=== PATIENT | female | born 1965 | race Caucasian/White ===

== ENCOUNTER → 2018-01-01 17:02 | Outpatient (CLI) | payer OTHER, SELFPAY ==
[2018-01-06 07:55] LABS: HPV APTIMA, High Risk Negative (Negative)
== END ==
PROVIDERS: Family Provider Internal Medicine; PCP Internal Medicine; Visit Provider Obstetrics & Gynecology
DX: Z12.4 Encounter for screening for malignant neoplasm of cervix (principal)
CPT/HCPCS: 88175; G0145

== ENCOUNTER → 2018-02-12 09:58 | Outpatient (CLI) | payer OTHER, SELFPAY ==
--- NOTE | 2018-02-12 10:01 | BI_ITS ---
MAMMOGRAPHY - BILATERAL SCREENING 3-D FATOUMATA SYNTHESIS REASON FOR EXAM: Female, 52 years old. Bilateral Screening 3-D tomosynthesis PERTINENT HISTORY: Left breast excisional biopsy around age 22. Family breast carcinoma maternal great aunt. TECHNIQUE: 2-D mammograms and 3-D Fatoumata synthesis of the breast (s) were performed. CAD was performed. COMPARISON: 05/23/2016 FINDINGS: The breast composition is composed of scattered fibroglandular density. No new asymmetric density, dominant mass, dense spiculated masses, abnormal clustered microcalcifications, architectural distortion, skin thickening or nipple retraction identified. Coarse benign-appearing calcifications. There has been no significant change since the prior study. BI/SCREENING MAMM (CAD), BILAT IMPRESSION: No mammographic signs of malignancy. Routine yearly mammograms recommended. ASSESSMENT CATEGORY: BIRADS Category 2: Benign. A letter regarding these results will be sent to the patient by the facility within 30 days. FOLLOW UP RECOMMENDATION: Yearly follow up mammogram recommended. (A) Negative results should not deter biopsy as a palpable lesion should be followed on clinical grounds and biopsy performed if clinically persistent for 3 months or increasing size. Approximately 10% of breast cancers are not detected by mammography. A normal mammogram should not delay biopsy of a clinically suspicious abnormality. Electronically Signed: Van Ruiz, at 20:29 EDT Tel , Service support ,
== END ==
PROVIDERS: Family Provider Internal Medicine; PCP Internal Medicine; Visit Provider Obstetrics & Gynecology
DX: Z12.31 Encounter for screening mammogram for malignant neoplasm of breast (principal)
CPT/HCPCS: 77063; 77067

== ENCOUNTER → 2019-01-07 11:56 | Outpatient (CLI) | payer OTHER, SELFPAY ==
[2019-01-07 11:35] VITALS: BMI 25.9
[2019-01-07 12:52] LABS: Follicle Stimulating Hormone 100.7 mIU/mL
== END ==
PROVIDERS: Family Provider Internal Medicine; PCP Internal Medicine; Referring Provider Nurse Practitioner Women's Health; Visit Provider Nurse Practitioner Women's Health
DX: R10.2 Pelvic and perineal pain (principal)
CPT/HCPCS: 36415; 83001

== ENCOUNTER → 2019-01-14 13:45 | Outpatient (CLI) | payer OTHER, SELFPAY ==
[2019-01-07 11:35] VITALS: BMI 25.9
--- NOTE | 2019-01-14 13:50 | US_ITS ---
STUDY: ULTRASOUND OF THE FEMALE PELVIS - COMPLETE REASON FOR EXAM: Female, 53 years old. Pelvic pain TECHNIQUE: Transabdominal and Transvaginal TECHNICAL QUALITY: Adequate. COMPARISON: None. FINDINGS: The uterus is anteverted and is in a midline position. The uterus measures 8.3 x 3.6 x 2.6 cm. Normal uterine cervix. The endometrium measures 3 mm in thickness, and is hyperechoic. There is no demonstrated endometrial mass. There is no demonstrated myometrial mass. The right ovary is visualized. The right ovary measures 1.7 x 1.5 x 1.1 cm. There is no right ovarian cyst or ovarian mass. There is no visualized right adnexal mass or complex lesion. There is normal arterial and normal venous vascularity. The left ovary is visualized. The left ovary measures 1.6 x 1.4 x 1.4 cm. There is no left ovarian cyst or ovarian mass. There is no visualized left adnexal mass or complex lesion. There is normal arterial and normal venous vascularity. There is no fluid in the cul-de-sac. US/Pelvic (Non ) IMPRESSION: Normal female pelvis. Electronically Signed: Carlos Carrillo, at 14:57 EDT Tel , Service support ,
--- NOTE | 2019-01-14 13:50 | US_ITS ---
STUDY: ULTRASOUND OF THE FEMALE PELVIS - COMPLETE REASON FOR EXAM: Female, 53 years old. Pelvic pain TECHNIQUE: Transabdominal and Transvaginal TECHNICAL QUALITY: Adequate. COMPARISON: None. FINDINGS: The uterus is anteverted and is in a midline position. The uterus measures 8.3 x 3.6 x 2.6 cm. Normal uterine cervix. The endometrium measures 3 mm in thickness, and is hyperechoic. There is no demonstrated endometrial mass. There is no demonstrated myometrial mass. The right ovary is visualized. The right ovary measures 1.7 x 1.5 x 1.1 cm. There is no right ovarian cyst or ovarian mass. There is no visualized right adnexal mass or complex lesion. There is normal arterial and normal venous vascularity. The left ovary is visualized. The left ovary measures 1.6 x 1.4 x 1.4 cm. There is no left ovarian cyst or ovarian mass. There is no visualized left adnexal mass or complex lesion. There is normal arterial and normal venous vascularity. There is no fluid in the cul-de-sac. US/Transvaginal Non- IMPRESSION: Normal female pelvis. Electronically Signed: Carlos Carrillo, at 14:57 EDT Tel , Service support ,
== END ==
PROVIDERS: Family Provider Internal Medicine; PCP Internal Medicine; Referring Provider Nurse Practitioner Women's Health; Visit Provider Nurse Practitioner Women's Health
DX: R10.2 Pelvic and perineal pain (principal)
CPT/HCPCS: 76830; 76856; 93976

== ENCOUNTER → 2019-03-04 10:51 | Outpatient (CLI) | payer OTHER, SELFPAY ==
[2019-01-07 11:35] VITALS: BMI 25.9
--- NOTE | 2019-03-04 11:10 | EKG12_ITS ---
Test Reason : PRE-OP Blood Pressure : / mmHG Vent. Rate : 084 BPM Atrial Rate : 084 BPM P-R Int : 120 ms QRS Dur : 072 ms QT Int : 372 ms P-R-T Axes : 054 079 048 degrees QTc Int : 439 ms Normal sinus rhythm Normal ECG Confirmed by ARLEY HURLEY, SWATHI ([id number]), editor managing director EVI MCCLAIN ([id number]) on 03/05/2019 1:31:52 PM Referred By: Alcon Cat Confirmed By:SWATHI TUBBS MD
[2019-03-04 11:42] LABS: Hematocrit 43.4 % (37-47); Hemoglobin 14.4 g/dL (12.0-15.0); Mean Corp Hgb Conc 33.2 g/dL (32-36); Mean Corpuscular Hgb 31.7 pg (27.0-32.0); Mean Corpuscular Volume 95.6 fL (81-99); Mean Platelet Vol. 9.4 fl (6.2-12.0); Platelet Count 208 K/mm3 (150-450); RBC Distribution Width CV 11.9 % (11.6-14.6); RBC Distribution Width SD 41.8 fl (35.1-43.9); Red Blood Count 4.54 M/mm3 (4.2-5.4); White Blood Count 5.8 K/mm3 (4.4-11.0)
[2019-03-04 12:04] LABS: Anion Gap 6 (5-15); BUN 17 mg/dL (7-18); BUN/Creat Ratio 24.5 RATIO (10-20); Calcium,Total 8.4 mg/dL (8.5-10.1); Chloride 108 mmol/L (98-107); EST Glomerular Filtration Rate 95 mL/min (>60); Est Glom Filt Rate - Afr Amer 114 mL/min (>60); Glucose 98 mg/dL (74-106); Potassium 3.7 mmol/L (3.5-5.1); Sodium Level 142 mmol/L (136-145)
== END ==
PROVIDERS: Family Provider Internal Medicine; PCP Internal Medicine; Referring Provider Orthopaedic Surgery; Visit Provider Orthopaedic Surgery
DX: Z01.818 Encounter for other preprocedural examination (principal); Z01.810 Encounter for preprocedural cardiovascular examination
CPT/HCPCS: 36415; 80048; 85027; 93005

== ENCOUNTER 2020-01-15 06:51 | Day surgery (SDC) | payer OTHER, SELFPAY ==
[2019-12-27 13:59] VITALS: BMI 25.9
--- NOTE | 2019-12-30 01:38 | HP_ITS ---
Intake Vital Signs 12/27/19 Height 5 ft 2 in 12/27/19 Weight: 135 lb 12/27/19 BMI 24.7 12/27/19 BP 134/86 H 12/27/19 Blood Pressure Location Rt brachial 12/27/19 Position Sitting 12/27/19 Respiration 18 12/27/19 Pulse 90 12/27/19 Pulse Source Monitor 12/27/19 Temp 98.2 F 12/27/19 Temp Source Temporal 12/27/19 Pulse Oximetry (%) 100 12/27/19 Oxygen Delivery Method room air Intake Visit Reasons: Cscope Consult Chief Complaint: est annual Optical Effects Layout Person Required: No Is patient in pain?: No (Lower abdominal pain) Allergies Penicillins Adverse Reaction (Mild, Verified 12/27/19 13:55) Yeast Infection Medications clobetasol 0.05 % topical ointment 1 applic TOPICAL DAILY #45 g 12/17/18 [Rx Confirmed 12/27/19] coenzyme Q10 125 mg capsule 120 mg PO cap 01/07/19 [History Confirmed 12/27/19] ginkgo biloba extract-Panax ginseng root extract 60 mg-100 mg capsule cap PO cap 01/07/19 [History Confirmed 12/27/19] ospemifene 60 mg tablet 60 mg PO DAILY #30 tab 01/07/19 [Rx Confirmed 12/27/19] estradiol 10 mcg vaginal tablet 10 mcg VAGINAL 2XW #8 tab 08/16/19 [Rx Confirmed 12/27/19] conjugated estrogens 0.625 mg/gram vaginal cream 1 applic TOPICAL 2XW g 12/27/19 [History Confirmed 12/27/19] dextroamphetamine-amphetamine 15 mg tablet 15 mg PO BID tab 12/27/19 [History Confirmed 12/27/19] zolpidem 10 mg tablet 10 mg PO QHS PRN tab 12/27/19 [History Confirmed 12/27/19] PFSH Medical History Cervicalgia (Acute) Raynauds phenomenon (Acute) Mittelschmerz (Acute) Lichen sclerosus (Acute) ADHD (Acute) Surgical History History of (Acute) History of prior ablation treatment (Acute) Hx of arthroscopy of shoulder (Acute) Carpal tunnel syndrome (Acute) Family History Aunt Breast cancer Mother Heart disease Thyroid disorder Father Heart disease Other Ovarian cancer Social History adopted: No number of children: 3 current occupational status: retired sexually active: Yes Smoking Status: Never smoker second hand exposure: No alcohol intake: current alcohol intake frequency: a few times a month substance use type: does not use caffeine: Yes what type of physical activity do you participate in: none frequency: does not exercise do you feel safe at home: Yes HPI HPI HPI: ELAINA LARA, is a 54 F who presents to the office today for HPI HPI Surgical H&P: Yes HPI: ELAINA LARA, is a 54 F who presents to the office today for ROS General General: No weight change, appetite, fatigue, colon cancer, breast cancer or weakness HEENT HEENT: No difficulty swallowing, eye injury, eye surgery, swollen glands or hoarseness Endo Endocrine: No thyroid disease, diabetes mellitus, thyroid cancer, Hair loss, heat intolerance or cold intolerance Skin Skin: No rash or changing moles Musc Musculoskeletal: Yes back problems and arthritis; no rheumatoid arthritis, gout or joint pain Cardio Cardiovascular: No murmur, pacemaker, heart disease, atrial fibrillation, high blood pressure, heart attack, heart stent, palpitations, shortness of breat with exertion or chest pain Psych Psychiatric: No depression, anxiety or hearing voices Resp Respiratory: No shortness of breath, No sleep apnea, No cough, No COPD, No asthma, No emphysema, No wheezing Gastro Gastrointestinal: No abdominal pain, No nausea or vomiting, No diarrhea, Yes constipation, No blood in stool, No acid reflux, No hemorrhoids, No ulcers, No gallbladder problem, No black,tarry stools Bryant Hematologic: No blood thinners, No blood disorders, No bleeding, No anemia, No blood clots Neuro Neurologic: No weakness Exam Cardio Heart Sounds: no murmurs Assessment & Plan Problems 1. Constipation K59.00 Plan Discussed with patient importance of fiber in her diet recommend 25 g of fiber daily would recommend slowly working up to this. Also tracking her fiber intake. I have discussed the above with the patient. I have offered the patient colonoscopy for evaluation. I have explained the risks/benefits of the procedure and described the procedure. I have discussed the risks with the patient, including but not limited to: infection, bleeding, perforation of the GI tract requiring emergency surgery, inability to complete the procedure, injury to any internal organs, complications of anesthesia, etc. - the patient understands and agrees to proceed. I have answered all the patient's questions to the patient's satisfaction and the patient has no further questions. The patient has been given instructions for the colon cleansing preparation. Discussed with patient that if she is having bowel movements mostly every 3 days recommend a 2-day prep with magnesium citrate followed by MiraLAX/Dulcolax however if she is going mostly every 2 days or less okay to do the 1 day clears with MiraLAX/Dulcolax. Molly Morillo M.D. Pager: [phone] [facility] [address] [place] [address], [address] [place] [id number] Office: [phone] Orders Orders: Colonoscopy 12/27/19 Plan Detail Follow Up We will schedule colonoscopy planning for January 14 Coding Diagnoses Constipation K59.00 Date _ Molly Morillo MD I have examined the patient the following changes are noted: Patient states she has increased her fiber and is is more regular, going daily
--- NOTE | 2020-01-15 | COLBX_PTH ---
PATIENT: ELAINA LARA LOC: EN U#:[id number] AGE/SX: 54/F ROOM: RE01/15/[address]: Dr. Molly Morillo MD : 1965 BED: DIS: 01/15/2020 SPEC #: [id number] RECD: 01/15/20 13:21 STATUS: MIGUEL KADY #: [id number] LEX: 01/15/20 00:[address]: Molly Morillo DEPT: SURGICAL PATHOLOGY RECD BY: Pineda Giraldo ENTERED: 01/15/20 13:21 SP TYPE: COLON BX OTHR DR: Dr. Soniya Raymundo MD Tissues: Ascending colon Procedures: Surgery Specimen Level IV HEADER OPERATION: Colonoscopy (MAC) PRE-OP DIAGNOSIS: Constipation TISSUE SUBMITTED: Ascending colon polyp MICROSCOPIC DIAGNOSIS Ascending colon polyp, biopsy: Tubular adenoma. AM:alexander 01/16/20 MICROSCOPIC DESCRIPTION Slides are reviewed. GROSS DESCRIPTION Received in fixative is one container labeled with the patient's name and designated ascending colon polyp. The specimen consists of one irregular fragment of light stoddard soft tissue that measures 0.4 x 0.2 x 0.1 cm. The specimen is totally submitted in one cassette. / SJ:alexander 01/15/20 TC:5 CPT: 36050
[2020-01-15] MEDS: Lactated Ringers 1,000 ML 100 ML IV (07:26)
[2020-01-15 07:27] VITALS: BP 104/80; PULSE 81; RESP 16; TEMP 36.2; O2SAT 100; BMI 23.5
--- NOTE | 2020-01-15 07:42 | HP.PCM_ITS ---
History and Physical Date of Admission: 01/15/20 Date of Service: 12/27/19 MR#: [id number] Acct: [id number] Name: ELAINA LARA Rep #: [id number] : 1965 Provider: Dr. Sariah Morillo MD Age/Sex: 54/F Location: [facility] Status: Signed Intake Vital Signs 12/27/19 Height 5 ft 2 in 12/27/19 Weight: 135 lb 12/27/19 BMI 24.7 12/27/19 BP 134/86 H 12/27/19 Blood Pressure Location Rt brachial 12/27/19 Position Sitting 12/27/19 Respiration 18 12/27/19 Pulse 90 12/27/19 Pulse Source Monitor 12/27/19 Temp 98.2 F 12/27/19 Temp Source Temporal 12/27/19 Pulse Oximetry (%) 100 12/27/19 Oxygen Delivery Method room air Intake Visit Reasons: Cscope Consult Chief Complaint: est annual Spiral Machine Operator Required: No Is patient in pain?: No (Lower abdominal pain) Allergies Penicillins Adverse Reaction (Mild, Verified 01/07/20 10:44) Yeast Infection Medications ginkgo biloba extract-Panax ginseng root extract 60 mg-100 mg capsule 1 cap PO DAILY cap 01/07/19 [History Confirmed 01/07/20] estradiol 10 mcg vaginal tablet 10 mcg VAGINAL 2XW #8 tab 08/16/19 [Rx Confirmed 01/07/20] conjugated estrogens 0.625 mg/gram vaginal cream 1 applic TOPICAL 2XW g 12/27/19 [History Confirmed 01/07/20] dextroamphetamine-amphetamine 15 mg tablet 15 mg PO BID tab 12/27/19 [History Confirmed 01/07/20] zolpidem 10 mg tablet 10 mg PO QHS PRN tab 12/27/19 [History Confirmed 01/07/20] Clobetasol Propionate 1 applic TOPICAL QWEEK 01/07/20 [History Confirmed 01/07/20] PFSH Medical History Cervicalgia (Acute) Raynauds phenomenon (Acute) Mittelschmerz (Acute) Lichen sclerosus (Acute) ADHD (Acute) Surgical History History of (Acute) History of prior ablation treatment (Acute) Hx of arthroscopy of shoulder (Acute) Carpal tunnel syndrome (Acute) Family History Aunt Breast cancer Mother Heart disease Thyroid disorder Father Heart disease Other Ovarian cancer Social History (Updated 01/14/20 @ 08:[address] Molly Morillo MD) adopted: No number of children: 3 current occupational status: retired sexually active: Yes Smoking Status: Never smoker second hand exposure: No alcohol intake: current alcohol intake frequency: a few times a month substance use type: does not use caffeine: Yes what type of physical activity do you participate in: none frequency: does not exercise do you feel safe at home: Yes HPI HPI HPI: ELAINA LARA, is a 54 F who presents to the office today for HPI HPI Surgical H&P: Yes HPI: ELAINA LARA, is a 54 F who presents to the office today for colonoscopy due to change of bowel habits patient states she has had constipation over the last 6 months she only goes about every 3 days denies any blood. Patient is unsure how much fiber she gets daily does state that she gets enough water. Patient is never had a previous colonoscopy. Patient denies any family history of colon cancer. Patient also states that she has left lower quadrant pain occasionally unsure what makes it better or worse describes it as crampy. ROS General General: No weight change, fatigue, colon cancer, breast cancer or weakness HEENT HEENT: No difficulty swallowing, eye injury, eye surgery, swollen glands or hoarseness Endo Endocrine: No thyroid disease, diabetes mellitus, thyroid cancer, Hair loss, hea t intolerance or cold intolerance Skin Skin: No rash or changing moles Musc Musculoskeletal: Yes back problems and arthritis; no rheumatoid arthritis, gout or joint pain Cardio Cardiovascular: No murmur, pacemaker, heart disease, atrial fibrillation, high blood pressure, heart attack, heart stent, palpitations, shortness of breat with exertion or chest pain Psych Psychiatric: No depression, anxiety or hearing voices Resp Respiratory: No shortness of breath, No sleep apnea, No cough, No COPD, No asthma, No emphysema, No wheezing Gastro Gastrointestinal: No abdominal pain, No nausea or vomiting, No diarrhea, Yes constipation, No blood in stool, No acid reflux, No hemorrhoids, No ulcers, No gallbladder problem, No black,tarry stools Bryant Hematologic: No blood thinners, No blood disorders, No bleeding, No anemia, No b lood clots Neuro Neurologic: No weakness Exam Const General: cooperative, comfortable, no acute distress Cardio Heart Sounds: no murmurs GI Inspection: distended Palpation: soft, tender (Minimal left lower quadrant no peritoneal signs) Extrem General: no clubbing, cyanosis or edema Psych Affect: normal affect Assessment & Plan Problems 1. Constipation K59.00 Plan Discussed with patient importance of fiber in her diet recommend 25 g of fiber daily would recommend slowly working up to this. Also tracking her fiber intake. I have discussed the above with the patient. I have offered the patient colonoscopy for evaluation. I have explained the risks/benefits of the procedure and described the procedure. I have discussed the risks with the patient, including but not limited to: infection, bleeding, perforation of the GI tract requiring emergency surgery, inability to complete the procedure, injury to any internal organs, complications of anesthesia, etc. - the patient understands and agrees to proceed. I have answered all the patient's questions to the patient's satisfaction and the patient has no further questions. The patient has been given instructions for the colon cleansing preparation. Discussed with patient that if she is having bowel movements mostly every 3 days recommend a 2-day prep with magnesium citrate followed by MiraLAX/Dulcolax bee danna if she is going mostly every 2 days or less okay to do the 1 day clears with MiraLAX/Dulcolax. Molly Morillo M.D. Pager: [phone] [facility] [address] [place] [address], [address] [place] [address] Office: [phone] Orders Orders: Colonoscopy 12/27/19 Plan Detail Follow Up We will schedule colonoscopy planning for January 14 Coding Level of Care Code Off vis,new,level 3 Diagnoses Constipation K59.00 01/14/20 0843 <Electronically signed by Molly Bonilla am, MD> Date _ Molly Morillo MD I have examined the patient the following changes are noted: Patient states she has increased her fiber in diet, going daily. We discussed the current risks associated with COVID-19. While it is understood that there is a community spread of COVID-19, the risk of emanuel COVID-19 while at [facility] ([facility]) is very low; however, the risk cannot be completely mitigated because of the community spread of the disease. We discussed in detail the risk of exposure to and/or potential harm posed by the COVID-19 virus with having a surgery/procedure at this time versus the risk of delaying the surgery/procedure. It is not possible to know either the risk of delaying the surgery or procedure or chance of getting an infection with perfect accuracy, but a joint decision was made to proceed at this time with the scheduled surgery/procedure as indicated on the consent form. Patient was notified that we will need to comply with any screening or testing [facility] wishes to perform or that surgery may be delayed for any positive results.
[2020-01-15 08:32] VITALS: BP 104/80; BP 91/57; PULSE 67; RESP 18; TEMP 36.6; O2SAT 100
[2020-01-15 08:37] VITALS: BP 104/80; BP 94/58; PULSE 63; RESP 17; O2SAT 100
--- NOTE | 2020-01-15 08:41 | OP.COLON_ITS ---
Patient Name: Breanna Ward Procedure Date: 01/15/2020 7:52 AM Date of : 1965 Age: 54 Procedure: Colonoscopy Indications: Constipation Providers: Molly Morillo MD Referring MD: Soniya Raymundo Medicines: Monitored Anesthesia Care Patient Profile: This is a 54 year old female. Last Colonoscopy: none. The patient's first colonoscopy is today. Complications: No immediate complications. Procedure: Pre-Anesthesia Assessment: - Prior to the procedure, a History and Physical was performed, and patient medications and allergies were reviewed. The patient's tolerance of previous anesthesia was also reviewed. The risks and benefits of the procedure and the sedation options and risks were discussed with the patient. All questions were answered, and informed consent was obtained. Prior Anticoagulants: The patient has taken no previous anticoagulant or antiplatelet agents. ASA Grade Assessment: Per anesthesia. After reviewing the risks and benefits, the patient was deemed in satisfactory condition to undergo the procedure. After I obtained informed consent, the scope was passed under direct vision. Throughout the procedure, the patient's blood pressure, pulse, and oxygen saturations were monitored continuously. The pediatric colonoscope was introduced through the anus and advanced to the cecum, identified by the appendiceal orifice, ileocecal valve and palpation. The colonoscopy was performed without difficulty. The patient tolerated the procedure well. The quality of the bowel preparation was good. Scope In: 8:10:11 AM Scope Withdrawal Time 0 hours 10 minutes 14 seconds Scope Out: 8:26:58 AM Total Procedure Duration Time 0 hours 16 minutes 47 seconds Findings: The perianal and digital rectal examinations were normal. A less than 5 mm polyp was found in the ascending colon. The polyp was semi-pedunculated. The polyp was removed with a hot snare. Resection and retrieval were complete. The exam was otherwise without abnormality on direct and retroflexion views. Impression: - One less than 5 mm polyp in the ascending colon, removed with a hot snare. Resected and retrieved. - The examination was otherwise normal on direct and retroflexion views. Recommendation: - Discharge patient to home. - Resume previous diet. - Continue present medications. - Await pathology results. - Repeat colonoscopy in 3 - 5 years for surveillance based on pathology results. Procedure Code(s): --- Professional --- 66787, Colonoscopy, flexible; with removal of tumor(s), polyp(s), or other lesion(s) by snare technique Diagnosis Code(s): --- Professional --- D12.2, Benign neoplasm of ascending colon K59.00, Constipation, unspecified CPT copyright 2017 [employer]. All rights reserved. The codes documented in this report are preliminary and upon cpr ambulance driver review may be revised to meet current compliance requirements. MD Molly Wharton MD 01/15/2020 8:41:10 AM This report has been signed electronically. Number of Addenda: 0 Note Initiated On: 01/15/2020 7:52 AM
--- NOTE | 2020-01-15 08:41 | OP.CCLET_ITS ---
01/15/2020 Soniya Raymundo [address] [place] [address] Re : Colonoscopy procedure for Breanna Sylvia Dear Dr. Raymundo This procedure was performed on Wednesday, January 15, 2020. My impressions and recommendations are as follows: Impressions : - One less than 5 mm polyp in the ascending colon, removed with a hot snare. Resected and retrieved. - The examination was otherwise normal on direct and retroflexion views. Recommendations : - Discharge patient to home. - Resume previous diet. - Continue present medications. - Await pathology results. - Repeat colonoscopy in 3 - 5 years for surveillance based on pathology results. My findings are described in the full procedure note, which is enclosed. If I can be of further assistance, please feel free to contact me at Doctor phone number(s): , Work: . Sincerely, MD Molly Wharton MD 01/15/2020 8:41:10 AM This report has been signed electronically.
[2020-01-15 08:42] VITALS: BP 104/80; BP 99/65; PULSE 60; RESP 16; O2SAT 100
[2020-01-15 08:47] VITALS: BP 104/80; BP 94/58; PULSE 57; RESP 16; TEMP 36.6; O2SAT 100
[2020-01-15 09:12] VITALS: BP 104/80; BP 107/76; PULSE 88; RESP 16; TEMP 36.2; O2SAT 100
== END 2020-01-15 09:17 | disposition home or self-care (01) ==
LOC: EN 06:52 → AC 06:52
PROVIDERS: Anesthesiology; PCP Internal Medicine; Referring Provider Internal Medicine; Visit Provider Surgery
PROC: 0DJD8ZZ Inspection of Lower Intestinal Tract, Via Natural or Artificial Opening Endoscopic (ICD-10-PCS; CPT 45378; principal; 2020-01-15 07:55)
DX: D12.2 Benign neoplasm of ascending colon (principal); K59.00 Constipation, unspecified; Z88.0 Allergy status to penicillin
CPT/HCPCS: 45385; 87635; 88305; G2023; J7120; J2405; U0003

== ENCOUNTER 2021-06-14 09:30 | Emergency (ER) | payer OTHER, SELFPAY ==
[2021-06-14 09:32] VITALS: BP 108/87; PULSE 86; RESP 16; TEMP 36.9; O2SAT 100; BMI 24.8
--- NOTE | 2021-06-14 10:17 | RAD_ITS ---
STUDY: X-RAY - UNILATERAL RIBS ( RIGHT ) WITH CHEST REASON FOR EXAM: Female, 55 years old. trauma TECHNIQUE - RIBS: 2 view(s) of the ribs. TECHNIQUE - CHEST: Single PA view of the chest. COMPARISON: None. FINDINGS - RIBS: Normal visualized ribs without a demonstrated fracture. FINDINGS - CHEST: The lungs are clear and expanded. There is no demonstrated pleural abnormality. Normal size heart. Normal mediastinum and gentry. Normal visualized pulmonary arteries. Normal visualized aortic arch and descending thoracic aorta. Normal visualized thoracic spine. Normal visualized ribs, clavicles, and shoulders. There is no demonstrated abnormality of the visualized soft tissue structures of the upper abdomen. RAD/Ribs Uni Min 3V w/PA Chest IMPRESSION: RIBS: Normal x-ray examination of the ribs. CHEST: Normal x-ray examination of the chest. Electronically Signed: Naun Mejia MD at 10:53 EST Tel , Service support ,
--- NOTE | 2021-06-14 10:17 | RAD_ITS ---
STUDY: X-RAY - RIGHT HAND REASON FOR EXAM: Female, 55 years old. injury TECHNIQUE: 3 view(s) of the hand. COMPARISON: None. FINDINGS: Normal radiocarpal articulation. Normal distal radioulnar joint. Normal visualized carpal bones. Normal carpal articulations Normal carpometacarpal articulation of the thumb. Normal second through fifth carpometacarpal joints. Normal metacarpi. Normal metacarpophalangeal joint of the thumb. Normal interphalangeal joint of the thumb. Normal proximal and distal phalanges of the thumb. Normal metacarpophalangeal joints of the second through fifth fingers. Normal proximal and distal interphalangeal joints of the second through fifth fingers. Normal phalanges of the second through fifth fingers. The soft tissue structures are unremarkable. RAD/Hand Min 3 Views IMPRESSION: Normal x-ray examination of the hand. Electronically Signed: Naun Mejia MD at 10:51 EST Tel , Service support ,
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
== END 2021-06-14 12:46 | disposition home or self-care (01) ==
PROVIDERS: Emergency Provider Emergency Medicine; PCP Internal Medicine
DX: S20.211A Contusion of right front wall of thorax, initial encounter (principal); S40.011A Contusion of right shoulder, initial encounter; S60.221A Contusion of right hand, initial encounter; Y92.410 Unspecified street and highway as the place of occurrence of the external cause; F90.9 Attention-deficit hyperactivity disorder, unspecified type; I73.00 Raynaud's syndrome without gangrene; N94.0 Mittelschmerz
CPT/HCPCS: 71101; 73130; 99282